=== PATIENT | male | born 2005 | race Caucasian/White ===

== ENCOUNTER 2024-06-27 23:43 | Emergency (ER) | payer OTHER ==
[~2024-06-27] VITALS: Ht 170.2 cm; Wt 59.0 kg
[2024-06-28 00:14] VITALS: O2SAT 100
[2024-06-28] MEDS ORDERED: ALBU18HF2 IH (01:48)
[2024-06-28 02:15] VITALS: BP 116/75; PULSE 90; RESP 18; TEMP 37.11408; O2SAT 99
== END 2024-06-28 02:18 | disposition home or self-care (01) ==
LOC: ER 23:43
DX: R05.9 Cough, unspecified (principal)
CPT/HCPCS: 71045; 99283